=== PATIENT | female | born 1990 | race African-American/Black ===

== ENCOUNTER 2016-11-26 16:52 | Emergency (ER) | payer OTHER ==
[2016-11-26 17:02] VITALS: BP 116/72; PULSE 96; TEMP 98.4; BMI 29.7
[2016-11-26] MEDS ORDERED: ACETAMINOPHEN 500 MG TABLET (FP) PO ONE (17:33)
[2016-11-26] MEDS ORDERED: ACETAMINOPHEN 325 MG TABLET (FP) ONE (17:37)
--- NOTE | 2016-11-26 17:38 | PDOC ---
History of Present Illness - General Chief Complaint: Vaginal Sxs Stated Complaint: VAGINAL BLEEDING Time Seen by Provider: 11/26/16 17:11 History Source: Patient Exam Limitations: No Limitations - History of Present Illness Travel History: No Initial Comments: 11/26/16 17:36 26-year-old female 10 weeks presents to the ED with complaints of abdominal pain since yesterday now with vaginal bleeding since this morning. 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 Patient states history of ectopic 2 to the right side which she states had removal of her fallopian tube last year. Patient currently denies right versus left the pubic pain but is stating pain to the midsuprapubic region is radiating to her back. Patient denies dysuria, fever, chills, recent injury, or diarrhea. Timing/Duration: reports: constant Quality: reports: mild, cramping Abdominal Pain Onset Location: reports: suprapubic Pain Radiation: reports: back Activities at Onset: reports: none Aggravating Factors: improves with: None Alleviating Factors: improves with: None Past History - Past Medical History Allergies/Adverse Reactions: Allergies Allergy/AdvReac Type Severity Reaction Status Date / Time nitrofurantoin Allergy Verified 11/26/16 16:57 [From Macrobid] nitrofurantoin Allergy Verified 11/26/16 16:57 macrocrystalline [From Macrobid] SEAFOOD Allergy THROAT Uncoded 11/26/16 16:57 SWELLING, RASH Home Medications: Ambulatory Orders NK [No Known Home Medication] 11/26/16 Disorders: Yes (ecotopic ) - Reproductive History Is Patient Now?: Yes (#): 2 Para: 0 Cervical CA: No Dysfunctional Uterine Bleeding: No Ectopic : Yes (x2) Endometrial CA: No Polycystic Ovaries: No Therapeutic (s) & number: No Tubal Ligation: No Spontaneous : 1 Oophorectomy: No - Immunization History Immunization Up to Date: Yes - Psycho/Social/Smoking Cessation Hx Anxiety: Yes Suicidal Ideation: No Smoking Status: No Smoking History: Smoker current status UNK Have you smoked in the past 12 months: No Number of Cigarettes Smoked Daily: 0 Information on smoking cessation initiated: No Hx Alcohol Use: No Drug/Substance Use Hx: No Substance Use Type: Marijuana Patient Lives Alone: No Lives with/in: parents Review of Systems - Review of Systems Able to Perform ROS?: Yes Constitutional: No: Symptoms Reported HEENTM: No: Symptoms Reported Respiratory: No: Symptoms reported Cardiac (ROS): No: Symptoms Reported ABD/GI: Yes: Abdominal cramping : Yes: Discharge (vaginal bleeding) Musculoskeletal: Yes: Back Pain (low) Integumentary: No: Symptoms Reported Neurological: No: Symptoms reported *Physical Exam - Vital Signs Last Vital Signs Temp Pulse Resp BP Pulse Ox 98.4 F 96 H 20 116/72 99 11/26/16 16:57 11/26/16 16:57 11/26/16 16:57 11/26/16 16:57 11/26/16 16:57 - Physical Exam General Appearance: Yes: Nourished, Appropriately Dressed. No: Apparent Distress HEENT: negative: Pale Conjunctivae Neck: positive: Normal Thyroid, Supple Respiratory/Chest: positive: Lungs Clear, Normal Breath Sounds. negative: Respiratory Distress, Accessory Muscle Use Cardiovascular: positive: Regular Rhythm, Regular Rate. negative: Murmur Female Pelvic Exam: positive: cervical os closed, vaginal bleeding (bright red ) . negative: CMT, adnexal tenderness Gastrointestinal/Abdominal: positive: Soft, Tenderness (midsuprapubic). negative: Distended, Guarding, Rebound Integumentary: positive: Normal Color, Warm, Moist Neurologic: positive: Motor Strength 5/5 (ambulatory) ED Treatment Course - LABORATORY CBC & Chemistry Diagram: 11/26/16 17:23 11/26/16 17:23 - RADIOLOGY Radiology Studies Ordered: Category Date Time Status <14WKS US [US] Stat Ultrasound 11/26/16 17:23 Ordered Medical Decision Making - Medical Decision Making 11/26/16 17:43 Patient vaginal bleeding abdominal pain. Patient states currently 10 weeks but has not had an ultrasound yet for this . Patient also states history of ectopic 2 to the right side with salpingectomy after not responding to methotrexate. Patient ordered for labs, urine, Tylenol and ultrasound. 11/26/16 18:22 Laboratory Tests 11/26/16 11/26/16 17:23 17:23 WBC 10.3 H D Hgb 12.1 D Hct 36.6 Plt Count 351 Neutrophils % 80.3 Urine Glucose (UA) Negative Urine Ketones 1+ H Urine Nitrite Negative Ur Leukocyte Esterase Negative Pt given pitcher of water 11/26/16 18:49 Laboratory Tests 11/26/16 11/26/16 11/26/16 17:23 17:23 17:23 WBC 10.3 H D Hgb 12.1 D Hct 36.6 Neutrophils % 80.3 Sodium Potassium Chloride Carbon Dioxide Anion Gap BUN Creatinine Creat Clearance w eGFR Random Glucose Calcium Total Bilirubin AST ALT Beta HCG, Quant Urine Ketones 1+ H Urine Nitrite Negative Ur Leukocyte Esterase Negative Blood Type O NEGATIVE 11/26/16 17:23 WBC Hgb Hct Neutrophils % Sodium 141 Potassium 3.9 Chloride 105 Carbon Dioxide 30 Anion Gap 6 L BUN 5 L D Creatinine 0.7 D Creat Clearance w eGFR > 60 Random Glucose 83 Calcium 9.1 Total Bilirubin 0.4 AST 14 L ALT 17 Beta HCG, Quant 791.5 Urine Ketones Urine Nitrite Ur Leukocyte Esterase Blood Type She states last week she had went to [facility] Since she was spotting and her beta hCG was in the mid 100s. but no ultrasound was done *DC/Admit/Observation/Transfer Diagnosis at time of Disposition: Incomplete - Discharge Dispostion Disposition: HOME Condition at time of disposition: Stable - Patient Instructions Printed Discharge Instructions: DI for Miscarriage Additional Instructions: Discharge Instructions: -Please follow up with your RUBBER PRESS OPERATOR as soon as possible - your ultrasound shows possible retained products that may need to be surgically removed; bring the copy of your ultrasound with you to the appointment -Take tylenol every 4 hour for pain -Return to the ER with any worsening or concerning symptoms
[2016-11-26] MEDS ORDERED: ONDANSETRON *ODT* 4 MG TABLET SL ONE (17:40)
[2016-11-26] MEDS ORDERED: ONDANSETRON *ODT* 4 MG TABLET ONE (17:41)
[2016-11-26 17:52] LABS: EOSINOPHIL 0.2 % (0-4.5); MCH 28.9 pg (25.7-33.7); MCHC 33.2 g/dl (32.0-36.0); MEAN PLT VOLUME 8.1 fl (7.5-11.1); NEUTROPHILS 80.3 % (42.8-82.8); PLATELET COUNT 351 K/MM3 (134-434); RDW 15.1 % (11.6-15.6); WHITE BLOOD COUNT 10.3 K/mm3 (4.0-10.0)
[2016-11-26 17:54] LABS: URINE APPEARANCE CLEAR; URINE BILIRUBIN NEGATIVE (NEGATIVE); URINE BLOOD NEGATIVE (NEGATIVE); URINE COLOR LTYELLOW; URINE GLUCOSE (UA) NEGATIVE (NEGATIVE); URINE KETONE 1+ (NEGATIVE); URINE LEUK ESTERASE NEGATIVE (NEGATIVE); URINE NITRITE NEGATIVE (NEGATIVE); URINE PROTEIN NEGATIVE (NEGATIVE); URINE UROBILINOGEN NEGATIVE E.U./dl (0.2-1.0)
[2016-11-26 18:21] LABS: ANION GAP 6 (8-16); BILIRUBIN,TOTAL 0.4 mg/dL (0.2-1.0); CALCIUM 9.1 mg/dL (8.5-10.1); CO2 30 mmol/L (21-32); CREATININE 0.7 mg/dL (0.55-1.02); GLUCOSE,RANDOM 83 mg/dL (74-106); SGOT/AST 14 U/L (15-37); SGPT/ALT 17 U/L (12-78); TOT PROT 7.4 g/dl (6.4-8.2)
[2016-11-26 18:24] LABS: ALK PHOS 56 U/L (45-117)
[2016-11-26] MEDS ORDERED: RHO(D) IMMUNE GLOBULIN 1,500 UNIT DISP.SYRIN IM ONE (19:01)
--- NOTE | 2016-11-26 19:04 | PDOC ---
*Physical Exam - Vital Signs Last Vital Signs Temp Pulse Resp BP Pulse Ox 98.4 F 96 H 20 116/72 99 11/26/16 16:57 11/26/16 16:57 11/26/16 16:57 11/26/16 16:57 11/26/16 16:57 - Physical Exam Comments: 11/26/16 19:03 The patient was examined by [EDVIN Paulson] under my direct supervision. I personally evaluated the patient. I concur with the above findings and the plan of care. ED Treatment Course - LABORATORY CBC & Chemistry Diagram: 11/26/16 17:23 11/26/16 17:23 - ADDITIONAL ORDERS Additional order review: Laboratory Results 11/26/16 11/26/16 11/26/16 17:23 17:23 17:23 Sodium 141 Potassium 3.9 Chloride 105 Carbon Dioxide 30 Anion Gap 6 L BUN 5 L D Creatinine 0.7 D Creat Clearance w eGFR > 60 Random Glucose 83 Calcium 9.1 Total Bilirubin 0.4 AST 14 L ALT 17 Alkaline Phosphatase 56 Total Protein 7.4 Albumin 4.0 Beta HCG, Quant 791.5 Urine Color Ltyellow Urine Appearance Clear Urine pH 7.0 Ur Specific [place] 1.020 Urine Protein Negative Urine Glucose (UA) Negative Urine Ketones 1+ H Urine Blood Negative Urine Nitrite Negative Urine Bilirubin Negative Urine Urobilinogen Negative Ur Leukocyte Esterase Negative Blood Type O NEGATIVE Antibody Screen Negative 11/26/16 17:23 RBC 4.21 MCV 87.0 MCHC 33.2 RDW 15.1 D MPV 8.1 Neutrophils % 80.3 Lymphocytes % 11.9 Monocytes % 6.6 Eosinophils % 0.2 Basophils % 1.0 D - Medications Given in the ED: ED Medications Discontinued Medications Generic Name Dose Route Start Last Admin Trade Name Freq PRN Reason Stop Dose Admin Acetaminophen 975 mg 11/26/16 17:33 11/26/16 17:38 Tylenol - PO 11/26/16 17:34 975 mg ONCE ONE Administration Ondansetron HCl 4 mg 11/26/16 17:40 11/26/16 18:03 Zofran Odt - SL 11/26/16 17:41 4 mg ONCE ONE Administration *DC/Admit/Observation/Transfer Diagnosis at time of Disposition: Incomplete - Discharge Dispostion Disposition: HOME Condition at time of disposition: Stable - Patient Instructions Printed Discharge Instructions: DI for Miscarriage Additional Instructions: Discharge Instructions: -Please follow up with your DIRECTOR OF BUSINESS CONTINUITY as soon as possible - your ultrasound shows possible retained products that may need to be surgically removed; bring the copy of your ultrasound with you to the appointment -Take tylenol every 4 hour for pain -Return to the ER with any worsening or concerning symptoms
--- NOTE | 2016-11-26 19:45 | PDOC ---
ED Treatment Course - LABORATORY CBC & Chemistry Diagram: 11/26/16 17:23 11/26/16 17:23 - ADDITIONAL ORDERS Additional order review: Laboratory Results 11/26/16 11/26/16 11/26/16 17:23 17:23 17:23 Sodium 141 Potassium 3.9 Chloride 105 Carbon Dioxide 30 Anion Gap 6 L BUN 5 L D Creatinine 0.7 D Creat Clearance w eGFR > 60 Random Glucose 83 Calcium 9.1 Total Bilirubin 0.4 AST 14 L ALT 17 Alkaline Phosphatase 56 Total Protein 7.4 Albumin 4.0 Beta HCG, Quant 791.5 Urine Color Ltyellow Urine Appearance Clear Urine pH 7.0 Ur Specific [place] 1.020 Urine Protein Negative Urine Glucose (UA) Negative Urine Ketones 1+ H Urine Blood Negative Urine Nitrite Negative Urine Bilirubin Negative Urine Urobilinogen Negative Ur Leukocyte Esterase Negative Blood Type O NEGATIVE Antibody Screen Negative Unit Expiration Date [id number] 11/26/16 17:23 RBC 4.21 MCV 87.0 MCHC 33.2 RDW 15.1 D MPV 8.1 Neutrophils % 80.3 Lymphocytes % 11.9 Monocytes % 6.6 Eosinophils % 0.2 Basophils % 1.0 D - Medications Given in the ED: ED Medications Discontinued Medications Generic Name Dose Route Start Last Admin Trade Name Freq PRN Reason Stop Dose Admin Acetaminophen 975 mg 11/26/16 17:33 11/26/16 17:38 Tylenol - PO 11/26/16 17:34 975 mg ONCE ONE Administration Ondansetron HCl 4 mg 11/26/16 17:40 11/26/16 18:03 Zofran Odt - SL 11/26/16 17:41 4 mg ONCE ONE Administration Progress Note - Progress Note Progress Note: I have received report from EDVIN Paulson regarding this patient. Pt's initial chief complaint: abd pain since yesterday with vaginal bleeding. Approximately 10 weeks . History of 2 prior ectopic pregnancies Pt's work up completed prior to sign out: labs, Type and screen, UA Pt treatment given from prior staff: tylenol, zofran, rhogam Pt plan to be completed: Awaiting results of ultrasound Dispo: pending Medical Decision Making - Medical Decision Making A/P: 26 y/o afebrile female, approximately 10 weeks c/o abd pain since yesterday and vaginal bleeding since this morning. The patient has history of 2 ectopic pregnancies. Pt has had labs, UA, type and screen. She has had TYlenol, zofran and rhogam. Awaiting results of ultrasound. Transvaginal Ultrasound IMPRESSION: thickened endometrium with heterogeneous echotexture measuring 1.6cm in AP dimension with questionable minimal vascular flow seen on the color Doppler images suggestive of retained products of conception versus blood clots. Close follow up is recommended. No intrauterine gestational sac is identified. Explained the results to the patient. Suspect incomplete . Provided her with a copy of the results and suggested she f/u with her PLUM PACKER as soon as possible. Pt instructed to return to the ER with any worsening or concerning symptoms. The patient verbalizes understanding of all instructions, has no further questions and is awaiting discharge. *DC/Admit/Observation/Transfer Diagnosis at time of Disposition: Incomplete - Discharge Dispostion Disposition: HOME Condition at time of disposition: Stable - Patient Instructions Printed Discharge Instructions: DI for Miscarriage Additional Instructions: Discharge Instructions: -Please follow up with your PLUM PACKER as soon as possible - your ultrasound shows possible retained products that may need to be surgically removed; bring the copy of your ultrasound with you to the appointment -Take tylenol every 4 hour for pain -Return to the ER with any worsening or concerning symptoms
[2016-11-26] MEDS ORDERED: IBUPROFEN 400 MG TABLET (FP) PO ONE ×2 (21:11→21:13)
== END 2016-11-26 21:13 | disposition home or self-care (01) ==
LOC: JER 16:52
PROC: 3E0234Z Introduction of Serum, Toxoid and Vaccine into Muscle, Percutaneous Approach (ICD-10-PCS; principal; 2016-11-26)
DX: O03.4 Incomplete spontaneous abortion without complication (principal); Z3A.10 10 weeks gestation of pregnancy
CPT/HCPCS: 36415; 76801-TC; 80053; 81003; 84702; 85025; 86850; 86900; 86901; 86999; 87086; 99282-25; J1561

== ENCOUNTER 2016-12-09 08:15 | Emergency (ER) | payer OTHER ==
[2016-12-09 08:22] VITALS: TEMP 97.9; BMI 29.7
[2016-12-09] MEDS ORDERED: SODIUM CHLORIDE 1,000 ML IV ONE (09:01)
[2016-12-09 09:45] LABS: WHITE BLOOD COUNT 6.4 K/mm3 (4.0-10.0)
[2016-12-09 09:47] LABS: URINE APPEARANCE CLEAR; URINE BILIRUBIN NEGATIVE (NEGATIVE); URINE BLOOD NEGATIVE (NEGATIVE); URINE COLOR LTYELLOW; URINE GLUCOSE (UA) NEGATIVE (NEGATIVE); URINE KETONE NEGATIVE (NEGATIVE); URINE NITRITE NEGATIVE (NEGATIVE); URINE PROTEIN NEGATIVE (NEGATIVE); URINE UROBILINOGEN NEGATIVE E.U./dl (0.2-1.0)
[2016-12-09 09:50] LABS: EOSINOPHIL 2.6 % (0-4.5); MCH 28.8 pg (25.7-33.7); MCHC 33.1 g/dl (32.0-36.0); MEAN PLT VOLUME 7.6 fl (7.5-11.1); NEUTROPHILS 57.6 % (42.8-82.8); PLATELET COUNT 417 K/MM3 (134-434); RDW 15.1 % (11.6-15.6)
[2016-12-09 09:51] LABS: URINE LEUK ESTERASE 1+ (NEGATIVE)
--- NOTE | 2016-12-09 09:51 | PDOC ---
History of Present Illness - General History Source: Patient Exam Limitations: No Limitations - History of Present Illness Initial Comments: 12/09/16 09:51 The patient is a 26-year-old woman, [id number] (ectopic), with no past medical history who presents to the emergency department via walk in for further evaluation of abdominal pain. Patient was in this ED on 11/26/2016, for abdominal pain with associated vaginal bleeding, which she was noted to have a miscarriage. Patient was advised to return to the ED in 48 hours to follow up on her beta HCG. She admits she never followed up, although she continued to bleed post discharge. She states that ever since hospital discharge, she has been experiencing suprapubic abdominal cramps with associated frontal headaches, lightheadedness and vaginal discharge (yellow in appearance). She stopped bleeding, approximately 2-3 days ago, but continued to experiencing abdominal cramping. She presents today, as her symptoms have remained persistent, despite compliance with Tylenol. She denies fever, chills, diaphoresis, generalized weakness, visual changes, photophobia, neck pain, neck stiffness. She denies chest pain, shortness of breath, cough She denies nausea, vomiting, diarrhea, dysuria, hematuria, urinary frequency and urgency, flank pain, vaginal bleeding Allergies: Nitrofuratoin. Past Surgical History: Ectopic Social History: Retired. She denies tobacco, ETOH and recreational drug use. Primary Care Physician: Follows at [address] [place] [address]. <Hannah Gould - Last Filed: 12/09/16 10:33> <Stevie Velazquez - Last Filed: 12/09/16 11:23> - General Chief Complaint: Pain, Acute Stated Complaint: DIZZINESS Time Seen by Provider: 12/09/16 08:49 Past History <Hannah Gould - Last Filed: 12/09/16 10:33> - Past Medical History Disorders: Yes (ecotopic ) - Reproductive History Is Patient Now?: No (#): 4 Para: 0 Cervical CA: No Dysfunctional Uterine Bleeding: No Ectopic : Yes (x2) Endometrial CA: No Polycystic Ovaries: No Therapeutic (s) & number: No Tubal Ligation: No Spontaneous : 2 Oophorectomy: No - Immunization History Immunization Up to Date: Yes - Psycho/Social/Smoking Cessation Hx Anxiety: Yes Suicidal Ideation: No Smoking Status: No Smoking History: Smoker current status UNK Have you smoked in the past 12 months: No Number of Cigarettes Smoked Daily: 0 Information on smoking cessation initiated: No Hx Alcohol Use: No Drug/Substance Use Hx: No Substance Use Type: Marijuana <Stevie Velazquez - Last Filed: 12/09/16 11:23> - Past Medical History Allergies/Adverse Reactions: Allergies Allergy/AdvReac Type Severity Reaction Status Date / Time nitrofurantoin Allergy Verified 12/09/16 08:17 [From Macrobid] nitrofurantoin Allergy Verified 12/09/16 08:17 macrocrystalline [From Macrobid] SEAFOOD Allergy THROAT Uncoded 12/09/16 08:17 SWELLING, RASH Home Medications: Ambulatory Orders Alprazolam [Xanax] 1 mg PO DAILY 12/09/16 Quetiapine Fumarate [Seroquel] 100 tab PO HS 12/09/16 Review of Systems - Review of Systems Constitutional: No: Chills, Fever HEENTM: No: Recent change in vision Respiratory: No: Cough, Shortness of Breath Cardiac (ROS): Yes: Lightheadedness. No: Chest Pain ABD/GI: Yes: Nausea. No: Diarrhea, Vomiting : Yes: See HPI Neurological: Yes: Headache All Other Systems: Reviewed and Negative <Stevie Velazquez - Last Filed: 12/09/16 11:23> *Physical Exam - Vital Signs Last Vital Signs Temp Pulse Resp BP Pulse Ox 97.9 F 80 16 123/88 100 12/09/16 08:18 12/09/16 08:18 12/09/16 08:18 12/09/16 08:18 12/09/16 08:18 - Physical Exam Comments: 12/09/16 09:51 GENERAL: The patient is awake, alert, and fully oriented, in no acute distress. HEAD: Normal with no signs of trauma. EYES: Pupils equal, round and reactive to light, extraocular movements intact, sclera anicteric, conjunctiva clear with no pallor. ENT: Ears normal, nares patent, oropharynx clear without exudates. Moist mucous membranes. NECK: Normal range of motion, supple without lymphadenopathy, JVD, or masses. LUNGS: Breath sounds equal, clear to auscultation bilaterally. No wheeze/ crackles. HEART: Regular rate and rhythm, normal S1 and S2 without murmur or rub. ABDOMEN: Soft. There is some suprapubic discomfort to palpation without guarding or rebound. Nondistended. BS wnl. No palpable masses. No hepatosplenomegaly. EXTREMITIES: Normal range of motion, no edema. No clubbing or cyanosis. No cords, erythema, or tenderness. NEUROLOGICAL: Cranial nerves II through XII grossly intact. Normal speech. PSYCH: Normal mood, normal affect. SKIN: Warm, Dry, normal turgor, no rashes or lesions noted. <Hannah Gould - Last Filed: 12/09/16 10:33> - Vital Signs Last Vital Signs Temp Pulse Resp BP Pulse Ox 97.9 F 80 16 123/88 100 12/09/16 08:18 12/09/16 08:18 12/09/16 08:18 12/09/16 08:18 12/09/16 08:18 <Stevie Velazquez - Last Filed: 12/09/16 11:23> Heart Score/ECG Review #1 ECG reviewed & interpreted by me at: 10:55 General ECG Interpretation: Sinus Rhythm, Normal Rate (70), Normal Intervals ( qtc 442), No acute ischemic changes <Stevie Velazquez - Last Filed: 12/09/16 11:23> ED Treatment Course - LABORATORY CBC & Chemistry Diagram: 12/09/16 09:25 12/09/16 09:25 - ADDITIONAL ORDERS Additional order review: 12/09/16 09:25 RBC 4.33 MCV 87.0 MCHC 33.1 RDW 15.1 MPV 7.6 Neutrophils % 57.6 D Lymphocytes % 31.8 D Monocytes % 7.0 Eosinophils % 2.6 D Basophils % 1.0 - RADIOLOGY Radiograph Interpretation: 12/09/16 10:33 EXAM: US/TRANSVAGINAL ULTRASOUND US IMPRESSION: Compared to prior examination dated 06/08/2015. The uterus measures 7.9 x 3.9 cm. No intrauterine gestational sac is seen. Endometrial stripe measures 7.5 mm in thickness and it appears hypoechoic. No abnormal vascularity is identified. Right ovary measures 3 x 2 cm with a few small peripheral follicles and normal vascular flow. Left ovary measures 3.3 x 2 cm with a simple cyst/dominant follicle measuring 1.4 cm and normal vascular flow. There is no free fluid in the cul-de-sac <GouldHannah - Last Filed: 12/09/16 10:33> - LABORATORY CBC & Chemistry Diagram: 12/09/16 09:25 12/09/16 09:25 - RADIOLOGY Radiology Studies Ordered: Category Date Time Status TRANSVAGINAL ULTRASOUND US [US] Stat Ultrasound 12/09/16 09:13 Ordered <Stevie Velazquez - Last Filed: 12/09/16 11:23> Medical Decision Making - Medical Decision Making 12/09/16 09:44 A portion of this note was documented by scribe services under my direction. I have reviewed the details of the note, within reason, and agree with the documentation with the following case summary and management plan written by me. 26-year-old female with status post first trimester miscarriage diagnosed on 11/26, had persistent bleeding after her ED visit now presents with episode of pelvic cramping with subsequent lightheadedness and mild, gradual onset headache. Her cramping and headache resolved after Tylenol, she activated EMS this morning for further evaluation. Patient is now essentially without complaints, no persistent vaginal bleeding, no fevers or chills. Vital signs normal. Well-appearing, hemodynamically stable, seated in stretcher smiling Abdomen is benign except for mild suprapubic discomfort Neurologically intact 26-year-old female with recently diagnosed spontaneous miscarriage presents with pelvic cramping, no bleeding. Rule out retained products, not clinically consistent with infection or PID. Mild, gradual onset headache without red flags on history or physical exam, resolved. Check hemoglobin, beta-hCG, transvaginal ultrasound No indication for emergent imaging as part of headache workup Will give IV fluids, reassess and dispo accordingly 12/09/16 11:19 Labs are within normal limits, hemoglobin 12.1 which is patient's baseline, hCG 22, downtrending from 11/26 when it was 250. Ultrasound shows no evidence of retained products of conception, normal endometrial stripe. Patient feels well, seated in stretcher talking on her cell phone smiling, abdominal exam unchanged and without peritoneal findings. Mom called the ER regarding the patient, she expressed concern about her daughter and the medications that she is taking. When I addressed this with the patient, she states that her psychiatrist prescribed her Xanax daily, and that her mother gets upset when she takes because she feels like she will get addicted. Discussed with patient, warned about the risks of daily Xanax, plan is to speak to her therapist about a better long-term solution. While she is upset that she had a fight with her girlfriend, she is not actively depressed and has no suicidal ideations or homicidal ideations, she does not want to see a psychiatrist and has good access to her therapist. In the absence of any acute psychiatric issues, no indication for emergent evaluation, patient can go home and/or to a friend's house, and feels safe at home. She understands return criteria. <Stevie Velazquez - Last Filed: 12/09/16 11:23> *DC/Admit/Observation/Transfer <Hannah Gould - Last Filed: 12/09/16 10:33> <Stevie Velazquez - Last Filed: 12/09/16 11:23> Diagnosis at time of Disposition: Miscarriage, Lightheaded - Discharge Dispostion Disposition: HOME Condition at time of disposition: Stable - Referrals Referrals: Ayleen Echevarria NP [Nurse Practitioner] - - Patient Instructions Printed Discharge Instructions: DI for Pelvic Pain Additional Instructions: Activity as tolerated. Stay hydrated. Tylenol 1000 mg every 8 hours and/or ibuprofen 600 mg every 8 hours as needed for pain. Blood tests and an ultrasound performed today showed no acute abnormalities. Continue your medications as previously prescribed by your physician. As discussed, if you find herself needing daily Xanax, there are better and less addicting medications that you can take. Speak to your therapist about this. You should follow up with your primary doctor as soon as possible regarding today's emergency department visit. Return to the emergency department for any new or concerning symptoms, particularly intolerable pain, depression or thoughts of hurting herself or others, fevers or chills, severe bleeding.
[2016-12-09 09:52] LABS: URINE BACTERIA RARE /hpf (NONE SEEN); URINE MUCUS RARE; URINE RBC <1 /hpf (0-3); URINE WBC 5 /hpf (3-5)
[2016-12-09 10:02] LABS: ALBUMIN 3.7 g/dl (3.4-5.0); ANION GAP 6 (8-16); BILIRUBIN,TOTAL 0.2 mg/dL (0.2-1.0); CALCIUM 8.8 mg/dL (8.5-10.1); CO2 31 mmol/L (21-32); CREATININE 0.8 mg/dL (0.55-1.02); GLUCOSE,RANDOM 92 mg/dL (74-106); SGOT/AST 13 U/L (15-37); SGPT/ALT 15 U/L (12-78)
[2016-12-09 10:05] LABS: ALK PHOS 51 U/L (45-117)
[2016-12-09 11:43] VITALS: BP 117/78; PULSE 70
--- NOTE | 2016-12-09 13:46 | EKG ---
Test Reason : Blood Pressure : / mmHG Vent. Rate : 070 BPM Atrial Rate : 070 BPM P-R Int : 172 ms QRS Dur : 078 ms QT Int : 410 ms P-R-T Axes : 018 038 020 degrees QTc Int : 442 ms NORMAL SINUS RHYTHM NORMAL ECG NO PREVIOUS ECGS AVAILABLE Confirmed by JAJA GALLEGO, SHAR ([id number]) on 12/09/2016 1:46:36 PM Referred By: Confirmed By:SHAR WILKINSON MD
== END 2016-12-09 11:44 | disposition home or self-care (01) ==
LOC: JER 08:15
PROC: 3E0337Z Introduction of Electrolytic and Water Balance Substance into Peripheral Vein, Percutaneous Approach (ICD-10-PCS; principal; 2016-12-09)
DX: O03.9 Complete or unspecified spontaneous abortion without complication (principal); R42 Dizziness and giddiness
CPT/HCPCS: 36415; 76830-TC; 80053; 81003; 81015; 84702; 85025; 86850; 86870; 86900; 86901; 86902; 93005; 93010; 96360; 99284-25

== ENCOUNTER 2017-05-14 10:03 | Emergency (ER) | payer OTHER ==
[2017-05-14 10:11] VITALS: BMI 28.3
--- NOTE | 2017-05-14 10:46 | PDOC ---
Attending Attestation - Resident Resident Name: KassyDb - ED Attending Attestation I have performed the following: I have examined & evaluated the patient, The case was reviewed & discussed with the resident, I agree w/resident's findings & plan, Exceptions are as noted - HPI HPI: 05/14/17 11:42 27y F hx of PCOS presents with complaint of nausea, and suprapubic pain for 1 month, pt states that when she has her period she typically feels nauseas and vomits. Since her last she has had zachariah long periods lsating several weeks. She states her sypmtoms are typical for her but she notes she has been feeling intermittent lightheaded for week. GENERAL: The patient is awake, alert, and fully oriented, Nontoxic - in no acute distress. HEAD: Normocephalic, atraumatic. EYES: extraocular movements intact, sclera anicteric, conjunctiva clear. ENT: Normal voice, Moist mucous membranes. NECK: Normal range of motion, supple LUNGS: Breath sounds equal, clear to auscultation bilaterally. No wheezes, no rhonchi, no rales. HEART: Regular rate and rhythm, normal S1 and S2 without murmur, rub or gallop. ABDOMEN: Soft, nontender, normoactive bowel sounds. No guarding, no rebound. . No CVA tenderness EXTREMITIES: Normal range of motion, no edema. No clubbing or cyanosis. No cords, erythema, or tenderness. NEUROLOGICAL: No facial assymetry, Normal speech, PSYCH: Normal mood, normal affect. SKIN: Warm, Dry, normal turgor, will obtain basic blood work zofran/fulids for sypmtomatic releif no abd tenderness to suggest localized peritonitis - Physicial Exam PE: 05/14/17 11:45 se eabove - Medical Decision Making 05/14/17 11:45 see above
[2017-05-14 11:26] LABS: URINE APPEARANCE SLCLOUDY; URINE BILIRUBIN NEGATIVE (NEGATIVE); URINE BLOOD NEGATIVE (NEGATIVE); URINE COLOR YELLOW; URINE GLUCOSE (UA) NEGATIVE (NEGATIVE); URINE KETONE NEGATIVE (NEGATIVE); URINE LEUK ESTERASE TRACE (NEGATIVE); URINE NITRITE NEGATIVE (NEGATIVE); URINE UROBILINOGEN NEGATIVE mg/dL (0.2-1.0)
[2017-05-14 11:35] LABS: URINE PROTEIN 1+ (NEGATIVE)
[2017-05-14 11:48] LABS: URINE MUCUS MANY; URINE RBC 7 /hpf (0-3); URINE WBC 6 /hpf (3-5); YEAST MODERATE
[2017-05-14 12:16] LABS: EOSINOPHIL 0.6 % (0-4.5); MCH 27.7 pg (25.7-33.7); MCHC 32.9 g/dl (32.0-36.0); MEAN CELL VOLUME 84.2 fl (80-96); NEUTROPHILS 63.5 % (42.8-82.8); PLATELET COUNT 416 K/MM3 (134-434); RDW 16.3 % (11.6-15.6); WHITE BLOOD COUNT 6.6 K/mm3 (4.0-10.0)
[2017-05-14 12:35] LABS: ALBUMIN 3.8 g/dl (3.4-5.0); ANION GAP 5 (8-16); CALCIUM 8.7 mg/dL (8.5-10.1); CO2 28 mmol/L (21-32); GLUCOSE,RANDOM 82 mg/dL (74-106)
[2017-05-14 12:37] LABS: CREATININE 0.9 mg/dL (0.55-1.02); SGOT/AST 17 U/L (15-37); SGPT/ALT 13 U/L (12-78)
--- NOTE | 2017-05-14 12:38 | PDOC ---
History of Present Illness - General Chief Complaint: Nausea/Vomiting Stated Complaint: VOMITING Time Seen by Provider: 05/14/17 10:09 - History of Present Illness Initial Comments: 05/14/17 12:35 27F with pmh of PCOS complaining of chronically vomiting during menses for the past few months. "cant keep anything down". Past History - Past Medical History Allergies/Adverse Reactions: Allergies Allergy/AdvReac Type Severity Reaction Status Date / Time nitrofurantoin Allergy Verified 12/09/16 08:17 [From Macrobid] nitrofurantoin Allergy Verified 12/09/16 08:17 macrocrystalline [From Macrobid] SEAFOOD Allergy THROAT Uncoded 12/09/16 08:17 SWELLING, RASH Home Medications: Ambulatory Orders Alprazolam [Xanax] 1 mg PO DAILY 12/09/16 Quetiapine Fumarate [Seroquel] 100 tab PO HS 12/09/16 Disorders: Yes (ecotopic ) - Reproductive History (#): 4 Para: 0 Cervical CA: No Dysfunctional Uterine Bleeding: No Ectopic : Yes (x2) Endometrial CA: No Polycystic Ovaries: No Therapeutic (s) & number: No Tubal Ligation: No Spontaneous : 2 Oophorectomy: No - Immunization History Immunization Up to Date: Yes - Psycho/Social/Smoking Cessation Hx Anxiety: No Suicidal Ideation: No Smoking Status: No Smoking History: Never smoked Have you smoked in the past 12 months: No Number of Cigarettes Smoked Daily: 0 Hx Alcohol Use: No Drug/Substance Use Hx: No Substance Use Type: None Review of Systems - Review of Systems Constitutional: No: Symptoms Reported HEENTM: No: Symptoms Reported Respiratory: No: Symptoms reported Cardiac (ROS): No: Symptoms Reported *Physical Exam - Vital Signs Last Vital Signs Temp Pulse Resp BP Pulse Ox 98.3 F 96 H 20 125/76 98 05/14/17 10:09 05/14/17 10:09 05/14/17 10:09 05/14/17 10:09 05/14/17 10:09 ED Treatment Course - LABORATORY CBC & Chemistry Diagram: 05/14/17 12:09 05/14/17 12:09 - ADDITIONAL ORDERS Additional order review: Laboratory Results 05/14/17 11:05 Urine Color Yellow Urine Appearance Slcloudy Urine pH 7.0 Urine Protein 1+ H Urine Glucose (UA) Negative Urine Ketones Negative Urine Blood Negative Urine Nitrite Negative Urine Bilirubin Negative Urine Urobilinogen Negative Ur Leukocyte Esterase Trace Urine RBC 7 Urine WBC 6 Ur Epithelial Cells Rare Urine Mucus Many Urine Yeast Moderate Urine HCG, Qual Negative 05/14/17 12:09 RBC 4.17 MCV 84.2 MCHC 32.9 RDW 16.3 H MPV 8.0 Neutrophils % 63.5 Lymphocytes % 29.7 Monocytes % 5.2 Eosinophils % 0.6 Basophils % 1.0
[2017-05-14 12:39] LABS: ALK PHOS 53 U/L (45-117); BILIRUBIN,TOTAL 0.2 mg/dL (0.2-1.0); TOT PROT 7.8 g/dl (6.4-8.2)
[2017-05-14 12:55] VITALS: BP 122/79; PULSE 75; TEMP 98.1
== END 2017-05-14 13:28 | disposition home or self-care (01) ==
LOC: JER 10:03
DX: R11.10 Vomiting, unspecified (principal); E28.2 Polycystic ovarian syndrome
CPT/HCPCS: 36415; 80053; 81003; 81015; 84703; 85025; 99282-25

== ENCOUNTER 2017-10-26 10:34 | Emergency (ER) | payer BC, OTHER ==
[2017-10-26 10:40] VITALS: TEMP 98.7; BMI 27.1
--- NOTE | 2017-10-26 13:41 | PDOC ---
History of Present Illness - General Chief Complaint: Pain Stated Complaint: pain Time Seen by Provider: 10/26/17 13:35 History Source: Patient Exam Limitations: No Limitations - History of Present Illness Initial Comments: CHIEF COMPLAINT: 27 y/o afebrile female with PMH bipolar disorder and OCD c/o left knee pain and left pelvic pain today. HISTORY OF PRESENT ILLNESS: The patient states the pelvic pain comes and goes. She states she woke up with the knee pain but denies fall/trauma to the knee. She denies f/c, n/v/d, BUCKNER, neck pain, changes in vision/hearing, CP, SOB, back pain, hematuria, dysuria. She has not taken any pain medication at home. Vital signs on arrival are within normal limits. REVIEW OF SYSTEMS: GENERAL/CONSTITUTIONAL: No fever/chills. No weakness. No weight change. HEAD, EYES, EARS, NOSE AND THROAT: No change in vision. No ear pain or discharge. No sore throat. CARDIOVASCULAR: No chest pain or shortness of breath. RESPIRATORY: No cough, wheezing, or hemoptysis. GASTROINTESTINAL: +left pelvic pain. No nausea, vomiting, diarrhea. GENITOURINARY: No dysuria, frequency, or change in urination. MUSCULOSKELETAL: +left knee pain. No neck or back pain. SKIN: No rash or easy bruising. NEUROLOGIC: No headache, vertigo, loss of consciousness, or loss of sensation. PHYSICAL EXAM: GENERAL: The patient is awake, alert, and fully oriented, in no acute distress. She is very well appearing, ambulatory, in NAD or obvious discomfort. HEAD: Normal with no signs of trauma. ENT: Pupils equal, round and reactive to light, extraocular movements intact, sclera anicteric, conjunctiva clear. Neck supple. LUNGS: Clear to auscultation bilaterally. Normal excursion. No respiratory distress or use of accessory muscles. CV: RRR, S1/S2, no MRG. Cap refill < 2 sec. ABDOMEN: Very minimal TTP of left pelvic region. +suprapubic tenderness to palpation. Soft, non-distended, no hepatomegaly or splenomegaly, no masses. EXTREMITIES: Normal range of motion, no edema. Pain reproduced with palpation of left superior patella. No left knee joint tenderness. Negative lachmann's test. NEUROLOGICAL: Normal speech, normal gait. CN II-XII grossly intact. PSYCH: Normal mood, normal affect. SKIN: Warm, dry, normal turgor, no rashes or lesions noted. Past History - Past Medical History Allergies/Adverse Reactions: Allergies Allergy/AdvReac Type Severity Reaction Status Date / Time nitrofurantoin Allergy Verified 10/26/17 10:36 [From Macrobid] nitrofurantoin Allergy Verified 10/26/17 10:36 macrocrystalline [From Macrobid] SEAFOOD Allergy THROAT Uncoded 10/26/17 10:36 SWELLING, RASH Home Medications: Ambulatory Orders Alprazolam [Xanax] 1 mg PO DAILY 12/09/16 Quetiapine Fumarate [Seroquel] 100 tab PO HS 12/09/16 Ibuprofen [Motrin -] 600 mg PO Q6H #18 tablet 10/26/17 COPD: No Disorders: Yes (ecotopic ) Psychiatric Problems: Yes (bipolar d/o , ocd) - Surgical History Abdominal Surgery: Yes (rt F.TUBE REMOVED) - Reproductive History (#): 4 Para: 0 Cervical CA: No Dysfunctional Uterine Bleeding: No Ectopic : Yes (x2) Endometrial CA: No Polycystic Ovaries: No Therapeutic (s) & number: No Tubal Ligation: No Spontaneous : 2 Oophorectomy: No - Immunization History Immunization Up to Date: Yes - Suicide/Smoking/Psychosocial Hx Smoking Status: No Smoking History: Never smoked Have you smoked in the past 12 months: No Number of Cigarettes Smoked Daily: 0 Information on smoking cessation initiated: No Hx Alcohol Use: No Drug/Substance Use Hx: No Substance Use Type: None *Physical Exam - Vital Signs Last Vital Signs Temp Pulse Resp BP Pulse Ox 98.7 F 98 H 18 109/82 100 10/26/17 10:37 10/26/17 10:37 10/26/17 10:37 10/26/17 10:37 10/26/17 10:37 ED Treatment Course - LABORATORY CBC & Chemistry Diagram: 10/26/17 14:05 10/26/17 14:05 Medical Decision Making - Medical Decision Making A/P: 27 y/o female with left pelvic pain, suprapubic pain and left knee pain that all started today. Plan is as follows: 1. hcg/UA 2. Labs 3. IM Toradol The patient states she feels better after Toradol. Vital signs improved. Will give NUBIA bandage for knee and will provide with RICE instructions. Also suggested iron supplement. She informs me that she had her period for 3 months straight and just stopped bleeding last week, which would explain the anemia. Suggested she take 600mg of Ibuprofen with food every 6 hours for pain and f/u with Dr. Palmer within 2 weeks as the patient requested a referral to a new PCP. Instructed her to return to the ER with any worsening or concerning symptoms. The patient verbalizes understanding of all instructions, has no further questions and is awaiting discharge. *DC/Admit/Observation/Transfer Diagnosis at time of Disposition: Pelvic pain Anemia Qualifiers: Anemia type: unspecified type Qualified Code(s): D64.9 - Anemia, unspecified - Discharge Dispostion Disposition: HOME Condition at time of disposition: Improved - Prescriptions Prescriptions: Ibuprofen [Motrin -] 600 mg PO Q6H #18 tablet - Referrals Referrals: Zack Palmer MD [Staff Physician] - 1 week - Patient Instructions Printed Discharge Instructions: DI for Iron Deficiency Anemia-Adult, How To Perform RICE (Rest, Ice, Compress, Elevate), DI for Knee Pain, DI for Pelvic Pain Additional Instructions: Discharge Instructions: -Follow RICE instructions for knee pain -Take 600mg of Ibuprofen with food every 6 hours for pain -Drink at least 8 glasses of water daily -Take an iron supplement daily -Follow up with Dr. Palmer within 2 weeks -Return to the ER immediately with any worsening or concerning symptoms - Post Discharge Activity Forms/Work/School Notes: Back to Work
[2017-10-26 14:13] LABS: HCG,QUALITATIVE URINE NEGATIVE
[2017-10-26 14:14] LABS: EOS % 1.6 % (0-4.5); HEMATOCRIT 31.1 % (32.4-45.2); HEMOGLOBIN 9.8 GM/dL (10.7-15.3); LYMPH % 23.6 % (8-40); MCH 24.5 pg (25.7-33.7); MCHC 31.5 g/dl (32.0-36.0); MEAN CELL VOLUME 77.7 fl (80-96); MONO % 7.6 % (3.8-10.2); NEUT % 66.2 % (42.8-82.8); PLATELET COUNT 546 K/MM3 (134-434); RDW 18.1 % (11.6-15.6); WHITE BLOOD COUNT 5.7 K/mm3 (4.0-10.0)
[2017-10-26 14:18] LABS: URINE APPEARANCE SLCLOUDY; URINE BILIRUBIN NEGATIVE (NEGATIVE); URINE BLOOD NEGATIVE (NEGATIVE); URINE COLOR YELLOW; URINE GLUCOSE (UA) NEGATIVE (NEGATIVE); URINE KETONE TRACE (NEGATIVE); URINE NITRITE NEGATIVE (NEGATIVE); URINE PROTEIN NEGATIVE (NEGATIVE); URINE UROBILINOGEN 4.0 E.U/dl mg/dL (0.2-1.0)
[2017-10-26 14:22] LABS: URINE LEUK ESTERASE 1+ (NEGATIVE)
[2017-10-26] MEDS ORDERED: SODIUM CHLORIDE 1,000 ML IV STA (14:30)
[2017-10-26] MEDS ORDERED: KETOROLAC TROMETHAMINE 30 MG/1 ML VIAL IVPUSH ONE (14:30)
[2017-10-26] MEDS ORDERED: KETOROLAC TROMETHAMINE 30 MG/1 ML VIAL ONE (14:39)
[2017-10-26 14:40] LABS: ALBUMIN 3.5 g/dl (3.4-5.0); ALK PHOS 68 U/L (45-117); ANION GAP 8 (8-16); BILIRUBIN,TOTAL 0.2 mg/dL (0.2-1.0); BLOOD UREA NITROGEN 7 mg/dL (7-18); CALCIUM 8.9 mg/dL (8.5-10.1); CHLORIDE 105 mmol/L (98-107); CO2 28 mmol/L (21-32); CREATININE 0.7 mg/dL (0.55-1.02); GLUCOSE,RANDOM 76 mg/dL (74-106); POTASSIUM 4.5 mmol/L (3.5-5.1); SGOT/AST 14 U/L (15-37); SGPT/ALT 13 U/L (12-78); SODIUM 141 mmol/L (136-145); TOT PROT 7.9 g/dl (6.4-8.2)
[2017-10-26 15:44] LABS: EPI CELLS RARE /HPF (FEW)
[2017-10-26 16:37] VITALS: BP 113/68; PULSE 80
== END 2017-10-26 16:49 | disposition home or self-care (01) ==
LOC: JER 10:34
PROC: 3E0337Z Introduction of Electrolytic and Water Balance Substance into Peripheral Vein, Percutaneous Approach (ICD-10-PCS; principal; 2017-10-26)
PROC: 3E0333Z Introduction of Anti-inflammatory into Peripheral Vein, Percutaneous Approach (ICD-10-PCS; 2017-10-26)
DX: R10.2 Pelvic and perineal pain (principal); M25.562 Pain in left knee; D64.9 Anemia, unspecified
CPT/HCPCS: 36415; 80053; 81003; 81015; 84703; 85025; 96361; 96374; 99281-25

== ENCOUNTER 2017-11-18 08:08 | Emergency (ER) | payer BC, OTHER ==
[2017-11-18 08:16] VITALS: BP 109/58; PULSE 73; TEMP 98.4; BMI 27.3
[2017-11-18] MEDS ORDERED: ONDANSETRON *ODT* 4 MG TABLET SL ONE (08:31)
[2017-11-18] MEDS ORDERED: ONDANSETRON *ODT* 4 MG TABLET ONE (08:36)
--- NOTE | 2017-11-18 08:42 | PDOC ---
History of Present Illness - General Chief Complaint: Nausea/Vomiting Stated Complaint: VOMITING Time Seen by Provider: 11/18/17 08:30 History Source: Patient Exam Limitations: No Limitations - History of Present Illness Initial Comments: 11/18/17 08:38 27 yr female with c/o nausea and vomiting since 5am . pt denies diarrhea no abd pain , last meal at 9pm was plantains and sausage. Pt denies sick contacts. history of depression and anxiety, right ectopic with fallopian tube removal. Timing/Duration: 4-6 hours Severity: mild Associated Symptoms: reports: nausea/vomiting Past History - Past Medical History Allergies/Adverse Reactions: Allergies Allergy/AdvReac Type Severity Reaction Status Date / Time nitrofurantoin Allergy Verified 11/18/17 08:12 [From Macrobid] nitrofurantoin Allergy Verified 11/18/17 08:12 macrocrystalline [From Macrobid] SEAFOOD Allergy THROAT Uncoded 11/18/17 08:12 SWELLING, RASH Home Medications: Ambulatory Orders NK [No Known Home Medication] 11/18/17 COPD: No DVT: No Disorders: Yes (ecotopic PREGS ( RIGHT FALLOPIAN TUBE )) Psychiatric Problems: Yes (bipolar d/o , ocd) - Surgical History Abdominal Surgery: Yes (rt F.TUBE REMOVED) - Reproductive History (#): 4 Para: 0 Cervical CA: No Dysfunctional Uterine Bleeding: No Ectopic : Yes (x2) Endometrial CA: No Polycystic Ovaries: No Therapeutic (s) & number: No Tubal Ligation: No Spontaneous : 2 Oophorectomy: No - Immunization History Immunization Up to Date: Yes - Suicide/Smoking/Psychosocial Hx Smoking Status: No Smoking History: Never smoked Have you smoked in the past 12 months: No Number of Cigarettes Smoked Daily: 0 Information on smoking cessation initiated: No Hx Alcohol Use: No Drug/Substance Use Hx: No Substance Use Type: None Review of Systems - Review of Systems Able to Perform ROS?: Yes Is the patient limited Croatian proficient: No Constitutional: No: Symptoms Reported HEENTM: No: Symptoms Reported Respiratory: No: Symptoms reported Cardiac (ROS): No: Symptoms Reported ABD/GI: Yes: Symptoms Reported *Physical Exam - Vital Signs Last Vital Signs Temp Pulse Resp BP Pulse Ox 98.4 F 73 16 109/58 100 11/18/17 08:12 11/18/17 08:12 11/18/17 08:12 11/18/17 08:12 11/18/17 08:12 - Physical Exam General Appearance: Yes: Nourished, Appropriately Dressed HEENT: positive: EOMI, MEGAN, TMs Normal Neck: positive: Supple. negative: Tender Respiratory/Chest: positive: Lungs Clear, Normal Breath Sounds Cardiovascular: positive: Regular Rhythm, Regular Rate Gastrointestinal/Abdominal: positive: Normal Bowel Sounds, Soft. negative: Tender Lymphatic: negative: Adenopathy Musculoskeletal: positive: Normal Inspection Extremity: positive: Normal Capillary Refill, Normal Inspection, Normal Range of Motion Integumentary: positive: Normal Color, Dry, Warm Neurologic: positive: Fully Oriented, Alert, Normal Mood/Affect, Normal Response , Motor Strength 02/26 ED Treatment Course - Medications Given in the ED: ED Medications Discontinued Medications Generic Name Dose Route Start Last Admin Trade Name Freq PRN Reason Stop Dose Admin Ondansetron HCl 4 mg 11/18/17 08:31 11/18/17 08:38 Zofran Odt - SL 11/18/17 08:32 4 mg ONCE ONE Administration Medical Decision Making - Medical Decision Making 11/18/17 08:41 cc: nausea and vomiting since 5am no fever no diarrhea no abd pain no urinary complaints LMP 2 weeks ago will r/o urine zofran now 11/18/17 08:54 pt tolerated apple juice no vomiting , feels better asking to go home 11/18/17 09:53 *DC/Admit/Observation/Transfer Diagnosis at time of Disposition: Viral gastroenteritis - Discharge Dispostion Disposition: HOME Condition at time of disposition: Good - Referrals Referrals: Rip Morin MD [Primary Care Provider] - - Patient Instructions Additional Instructions: small sips of clear fluids the next 24hrs jello , ice pops , broth slowly advance to dry crackers dry toast as tolerated return to ER for any worsening symptoms - Post Discharge Activity Forms/Work/School Notes: Back to Work
== END 2017-11-18 09:58 | disposition home or self-care (01) ==
LOC: JERFT 08:08
DX: A08.4 Viral intestinal infection, unspecified (principal); B97.89 Other viral agents as the cause of diseases classified elsewhere
CPT/HCPCS: 84703; 99281-25

== ENCOUNTER 2017-12-02 15:37 | Emergency (ER) | payer BC, OTHER ==
[2017-12-02 15:50] VITALS: BP 122/77; PULSE 99; TEMP 99.7; BMI 28.3
--- NOTE | 2017-12-02 15:53 | PDOC ---
Rapid Medical Evaluation Chief Complaint: Respiratory Time Seen by Provider: 12/02/17 15:51 Medical Evaluation: Allergies Allergy/AdvReac Type Severity Reaction Status Date / Time nitrofurantoin Allergy Verified 12/02/17 15:50 [From Macrobid] nitrofurantoin Allergy Verified 12/02/17 15:50 macrocrystalline [From Macrobid] SEAFOOD Allergy THROAT Uncoded 12/02/17 15:50 SWELLING, RASH Vital Signs Temp Pulse Resp BP Pulse Ox 99.7 F H 99 H 16 122/77 100 12/02/17 15:47 12/02/17 15:47 12/02/17 15:47 12/02/17 15:47 12/02/17 15:47 12/02/17 15:52 Pt c/o: fevr, myalgai, weakness x 4 days Pt on exam: vss, lcta Pt ordered for : none Pt to proceed to the ED Discharge Disposition - Diagnosis Fever - Referrals - Patient Instructions - Post Discharge Activity
[2017-12-02] MEDS ORDERED: ACETAMINOPHEN 325 MG TABLET (FP) ONE (16:37)
[2017-12-02] MEDS ORDERED: ACETAMINOPHEN 500 MG TABLET (FP) PO ONE (17:14)
--- NOTE | 2017-12-02 17:39 | PDOC ---
History of Present Illness - General Chief Complaint: Respiratory Stated Complaint: FEVER Time Seen by Provider: 12/02/17 15:51 History Source: Patient Exam Limitations: No Limitations - History of Present Illness Initial Comments: 12/02/17 17:34 Mom here with daughter with complaints of cough, fevers, sore throat pain, general body aches 3-4 days. States all of family has been ill and has brought daughter for same illness symptoms that started yesterday. Some family members have been diagnosed with influenza. Patient has taken ibuprofen for fever and pain relief. Timing/Duration: reports: constant Severity: reports: mild, moderate Associated Symptoms: reports: chest pain/soreness, cough, fever/chills, lightheadedness, nasal congestion, nasal drainage, sore throat Past History - Travel Traveled outside of the country in the last 30 days: No Close contact w/someone who was outside of country & ill: No - Past Medical History Allergies/Adverse Reactions: Allergies Allergy/AdvReac Type Severity Reaction Status Date / Time nitrofurantoin Allergy Verified 12/02/17 15:50 [From Macrobid] nitrofurantoin Allergy Verified 12/02/17 15:50 macrocrystalline [From Macrobid] SEAFOOD Allergy THROAT Uncoded 12/02/17 15:50 SWELLING, RASH Home Medications: Ambulatory Orders Ibuprofen [Motrin -] 400 mg PO QID PRN #28 tablet 12/02/17 COPD: No DVT: No Disorders: Yes (ecotopic PREGS ( RIGHT FALLOPIAN TUBE )) Psychiatric Problems: Yes (bipolar d/o , ocd) - Surgical History Abdominal Surgery: Yes (rt F.TUBE REMOVED) - Reproductive History (#): 4 Para: 0 Cervical CA: No Dysfunctional Uterine Bleeding: No Ectopic : Yes (x2) Endometrial CA: No Polycystic Ovaries: No Therapeutic (s) & number: No Tubal Ligation: No Spontaneous : 2 Oophorectomy: No - Immunization History Immunization Up to Date: Yes - Suicide/Smoking/Psychosocial Hx Smoking Status: No Smoking History: Never smoked Have you smoked in the past 12 months: No Number of Cigarettes Smoked Daily: 0 Hx Alcohol Use: No Drug/Substance Use Hx: No Substance Use Type: None Review of Systems - Review of Systems Able to Perform ROS?: Yes Is the patient limited Kazakh proficient: Yes Constitutional: Yes: Symptoms Reported, See HPI, Chills, Fever, Malaise, Weakness HEENTM: Yes: Symptoms Reported, See HPI, Nose Congestion, Throat Pain Respiratory: Yes: Symptoms reported, See HPI, Cough, Wheezing Musculoskeletal: Yes: Symptoms Reported, See HPI, Joint Pain, Joint Swelling, Muscle Pain All Other Systems: Reviewed and Negative *Physical Exam - Vital Signs Last Vital Signs Temp Pulse Resp BP Pulse Ox 99.7 F H 99 H 16 122/77 100 12/02/17 15:47 12/02/17 15:47 12/02/17 15:47 12/02/17 15:47 12/02/17 15:47 - Physical Exam General Appearance: Yes: Nourished, Appropriately Dressed, Apparent Distress, Mild Distress HEENT: positive: MEGAN, Normal ENT Inspection, TMs Normal (congested but landmarks visualized), Nasal Congestion (clear), Rhinorrhea Neck: positive: Supple. negative: Tender Respiratory/Chest: positive: Lungs Clear (course), Normal Breath Sounds. 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 However patient is outside window for Tamiflu administration therefore will continue conservative treatment *DC/Admit/Observation/Transfer Diagnosis at time of Disposition: Influenzal acute upper respiratory infection - Discharge Dispostion Disposition: HOME Condition at time of disposition: Stable Admit: No - Referrals Referrals: Rip Morin MD [Primary Care Provider] - - Patient Instructions Additional Instructions: Rest, drink lots of fluids: Teas, water, soups, Pedialyte Saltwater gargles Steamy showers/seem to face break up mucus Old-fashioned treatments help! Avoid contact with others until fevers and cough resolved as this is very contagious Lots of handwashing and good hygiene Continue [id number] medications for symptomatic relief Tylenol or Motrin for fever and pain Followup with private physician in one to 2 days as needed or if worsening Return to emergency department for worsened symptoms, fevers, dehydration Influenza takes between 5 and 7 days for resolution To not participate in any activity, work, or school until fevers and cough are gone for at least one day - Post Discharge Activity Forms/Work/School Notes: Back to Work
== END 2017-12-02 17:45 | disposition home or self-care (01) ==
LOC: JERFT 15:37
DX: J11.1 Influenza due to unidentified influenza virus with other respiratory manifestations (principal)
CPT/HCPCS: 99281-25

== ENCOUNTER 2018-02-02 09:56 | Emergency (ER) | payer BC, OTHER ==
[2018-02-02 10:05] VITALS: BMI 28.1
[2018-02-02 12:22] LABS: URINE APPEARANCE SLCLOUDY; URINE BILIRUBIN NEGATIVE (<2.0 mg/dL); URINE BLOOD NEGATIVE (NEGATIVE); URINE COLOR LTYELLOW; URINE GLUCOSE (UA) NEGATIVE (NEGATIVE); URINE KETONE NEGATIVE (NEGATIVE); URINE NITRITE NEGATIVE (NEGATIVE); URINE PROTEIN NEGATIVE (NEGATIVE); URINE UROBILINOGEN NEGATIVE mg/dL (0.2-1.0)
[2018-02-02 12:23] LABS: EPI CELLS FEW /HPF (FEW); URINE LEUK ESTERASE 3+ (NEGATIVE); URINE MUCUS RARE
[2018-02-02 12:30] LABS: EOS % 0.9 % (0-4.5); HEMATOCRIT 33.6 % (32.4-45.2); HEMOGLOBIN 10.7 GM/dL (10.7-15.3); LYMPH % 40.3 % (8-40); MCH 24.4 pg (25.7-33.7); MCHC 31.7 g/dl (32.0-36.0); MEAN CELL VOLUME 77.1 fl (80-96); MEAN PLT VOLUME 7.6 fl (7.5-11.1); MONO % 7.3 % (3.8-10.2); NEUT % 50.5 % (42.8-82.8); PLATELET COUNT 370 K/MM3 (134-434); RBC 4.36 M/mm3 (3.60-5.2); RDW 21.5 % (11.6-15.6); WHITE BLOOD COUNT 5.2 K/mm3 (4.0-10.0)
[2018-02-02 12:54] LABS: ALBUMIN 4.1 g/dl (3.4-5.0); ANION GAP 8 (8-16); BILIRUBIN,TOTAL 0.2 mg/dL (0.2-1.0); BLOOD UREA NITROGEN 5 mg/dL (7-18); CALCIUM 9.1 mg/dL (8.5-10.1); CHLORIDE 105 mmol/L (98-107); CO2 30 mmol/L (21-32); CREATININE 0.8 mg/dL (0.55-1.02); GLUCOSE,RANDOM 86 mg/dL (74-106); POTASSIUM 4.2 mmol/L (3.5-5.1); SGOT/AST 16 U/L (15-37); SGPT/ALT 12 U/L (12-78); SODIUM 143 mmol/L (136-145); TOT PROT 7.9 g/dl (6.4-8.2)
[2018-02-02 12:55] LABS: ALK PHOS 57 U/L (45-117)
--- NOTE | 2018-02-02 13:06 | PDOC ---
History of Present Illness - General History Source: Patient Exam Limitations: No Limitations - History of Present Illness Initial Comments: 02/02/18 13:46 The patient is a 27 year old female, , blood type O negative, with a significant past medical history of ectopic x2 s/p right fallopian tube removal and one miscarriage, who presents to the emergency department with intermittent middle to left suprapubic pain for about 2 weeks. She states she had some very mild vaginal bleeding last week, but denies ever being able to soak a pad or her underwear. She states the bleeding has stopped this week, but the intermittent abdominal pain persists. She states the pain goes from 8/10 to 5/10, but denies any pain now. She denies any other complaints. She states she had a positive test at [facility] 2 weeks ago. LMP 2-3 months ago. She denies chest pain, shortness of breath, headache and dizziness. She denies fever, chills, nausea, vomit, diarrhea and constipation. She denies dysuria, frequency, urgency and hematuria. <Danya Pompa - Last Filed: 02/02/18 16:14> - General History Source: Patient Exam Limitations: No Limitations <Stephani Álvarez - Last Filed: 02/02/18 17:19> - General Chief Complaint: Vaginal Bleeding Stated Complaint: BLEEDING () Time Seen by Provider: 02/02/18 11:50 Past History <Danya Pompa - Last Filed: 02/02/18 16:14> - Past Medical History COPD: No DVT: No Disorders: Yes (ecotopic PREGS ( RIGHT FALLOPIAN TUBE )) Psychiatric Problems: Yes (bipolar d/o , ocd) - Surgical History Abdominal Surgery: Yes (rt F.TUBE REMOVED) - Reproductive History (#): 4 Para: 0 Cervical CA: No Dysfunctional Uterine Bleeding: No Ectopic : Yes (x2) Endometrial CA: No Polycystic Ovaries: No Therapeutic (s) & number: No Tubal Ligation: No Spontaneous : 2 Oophorectomy: No - Immunization History Immunization Up to Date: Yes - Suicide/Smoking/Psychosocial Hx Smoking Status: No Smoking History: Never smoked Have you smoked in the past 12 months: No Number of Cigarettes Smoked Daily: 0 Information on smoking cessation initiated: No Hx Alcohol Use: No Drug/Substance Use Hx: No Substance Use Type: None <Stephani Álvarez - Last Filed: 02/02/18 17:19> - Past Medical History Allergies/Adverse Reactions: Allergies Allergy/AdvReac Type Severity Reaction Status Date / Time nitrofurantoin Allergy Verified 02/02/18 10:05 [From Macrobid] nitrofurantoin Allergy Verified 02/02/18 10:05 macrocrystalline [From Macrobid] SEAFOOD Allergy THROAT Uncoded 02/02/18 10:05 SWELLING, RASH Home Medications: Ambulatory Orders Ibuprofen [Motrin -] 400 mg PO QID PRN #28 tablet 12/02/17 Review of Systems - Review of Systems Able to Perform ROS?: Yes Comments:: 02/02/18 13:47 CONSTITUTIONAL: Absent: fever, no chills, no fatigue EYES: Absent: visual changes ENT: Absent: ear pain, no sore throat CARDIOVASCULAR: Absent: chest pain, no palpitations RESPIRATORY: Absent: cough, no SOB GASTROINTESTINAL: (+) suprapubic abdominal pain, Absent: no nausea, no vomiting, no constipation , no diarrhea GENITOURINARY: Absent: dysuria, no frequency, no hematuria MUSCULOSKELETAL: Absent: back pain, no arthralgia, no myalgia SKIN: Absent: rash NEURO: Absent: headache <Danya Pompa - Last Filed: 02/02/18 16:14> *Physical Exam - Vital Signs Last Vital Signs Temp Pulse Resp BP Pulse Ox 99.1 F 83 16 121/83 100 02/02/18 10:01 02/02/18 10:01 02/02/18 10:01 02/02/18 10:01 02/02/18 10:01 - Physical Exam Comments: 02/02/18 13:47 GENERAL: The patient is in no acute distress. HEAD: Normal with no signs of trauma. EYES: PERRLA, EOMI, sclera anicteric, conjunctiva clear. ENT: Ears normal, nares patent, oropharynx clear without exudates. Moist mucous membranes. NECK: Normal range of motion, supple without lymphadenopathy, JVD, or masses. LUNGS: Breath sounds equal, clear to auscultation bilaterally. No wheezes, and no crackles. HEART:Regular rate and rhythm, normal S1 and S2 without murmur, rub or gallop. ABDOMEN: Soft, nontender, normoactive bowel sounds. No guarding, no rebound. No masses palpable. EXTREMITIES: Normal range of motion, no edema. No clubbing or cyanosis. No erythema, or tenderness. NEUROLOGICAL: Cranial nerves II through XII grossly intact. Normal speech. No focal neurological deficits. MUSCULOSKELETAL: Back non-tender to palpation, no CVA tenderness SKIN: Warm, Dry, normal turgor, no rashes or lesions noted. <Danya Pompa - Last Filed: 02/02/18 16:14> - Vital Signs Last Vital Signs Temp Pulse Resp BP Pulse Ox 99.1 F 83 16 121/83 100 02/02/18 10:01 02/02/18 10:01 02/02/18 10:01 02/02/18 10:01 02/02/18 10:01 <Stephani Álvarez - Last Filed: 02/02/18 17:19> ED Treatment Course - LABORATORY CBC & Chemistry Diagram: 02/02/18 12:15 02/02/18 12:15 - ADDITIONAL ORDERS Additional order review: Laboratory Results 02/02/18 02/02/18 12:15 11:42 Sodium 143 Potassium 4.2 Chloride 105 Carbon Dioxide 30 Anion Gap 8 BUN 5 L Creatinine 0.8 Creat Clearance w eGFR > 60 Random Glucose 86 Calcium 9.1 Total Bilirubin 0.2 AST 16 ALT 12 Alkaline Phosphatase 57 Total Protein 7.9 Albumin 4.1 Urine Color Ltyellow Urine Appearance Slcloudy Urine pH 8.0 Ur Specific Nunda 1.012 Urine Protein Negative Urine Glucose (UA) Negative Urine Ketones Negative Urine Blood Negative Urine Nitrite Negative Urine Bilirubin Negative Urine Urobilinogen Negative Ur Leukocyte Esterase 3+ H D Urine WBC (Auto) 16 Urine RBC (Auto) 2 Ur Epithelial Cells Few Urine Mucus Rare 02/02/18 12:15 RBC 4.36 MCV 77.1 L MCHC 31.7 L RDW 21.5 H D MPV 7.6 Neutrophils % 50.5 D Lymphocytes % 40.3 H D Monocytes % 7.3 Eosinophils % 0.9 Basophils % 1.0 - RADIOLOGY Radiograph Interpretation: 02/02/18 15:55 EXAM#: TYPE/EXAM: RESULT: [id number] US/TRANSVAGINAL US PREG Early . Left lower quadrant pain. Rule out ectopic . Pelvis ultrasound, transvesical and transvaginal Compared to prior pelvis ultrasound dated 11/26/2016 The uterus measures 6.8 x 3.7 cm in sagittal and AP dimension. Endometrial stripe is within normal limits in thickness measuring approximately 3 mm without evidence of an intrauterine gestation sac. The right ovary measures 3.4 x 2.4 cm with a simple cyst/dominant follicle measuring 1.5 x 1.2 cm and normal vascular flow, arterial and venous. The left ovary measures 3.4 x 2.1 cm with multiple small simple cysts/ follicles and normal vascular flow, arterial and venous. Just medial to the left ovary there is a round echogenic density with peripheral flow measuring 7 mm and an anechoic center measuring 5 mm. There is an oval-shaped masslike density seen deep in the midline of the pelvis measuring 5.3 x 1.6 cm with small amount of surrounding free fluid. IMPRESSION: Patient has a negative beta-hCG value that was submitted after performing the exam. Multiple fluid-filled small bowel loops in the pelvis are slightly limiting this examination. No intrauterine is identified. Simple cyst/dominant follicle in the right ovary measuring 1.5 x 1.2 cm. Small round echogenic density with hypoechoic center seen in the left adnexa, medial to the left ovary measuring 7 mm with peripheral vascular flow. Its appearance may be compatible with ectopic if the patient was . There is also a tubular shaped masslike density deep in the midline of the pelvis posteriorly measuring 5.3 x 1.6 cm with small amount of surrounding free fluid and without gross evidence of vascular flow, which is nonspecific. The possibility of tubo- ovarian abscess cannot be excluded if the patient has PID symptoms. Otherwise, further evaluation is needed to rule out a mass. Case discussed with Dr. Stephani Álvarez, emergency room caring attending physician. LICENSED CLUB MANAGER consult is suggested. Correlating to an short-term follow-up ultrasound within 24 to 48 hours would be helpful for further evaluation. Otherwise, correlation with MRI of the pelvis could be obtained for further evaluation Reported By: Pedrito Junior MD 02/02/18 1546 <Danya Pompa - Last Filed: 02/02/18 16:14> - LABORATORY CBC & Chemistry Diagram: 02/02/18 12:15 02/02/18 12:15 - ADDITIONAL ORDERS Additional order review: Laboratory Results 02/02/18 02/02/18 12:15 11:42 Sodium 143 Potassium 4.2 Chloride 105 Carbon Dioxide 30 Anion Gap 8 BUN 5 L Creatinine 0.8 Creat Clearance w eGFR > 60 Random Glucose 86 Calcium 9.1 Total Bilirubin 0.2 AST 16 ALT 12 Alkaline Phosphatase 57 Total Protein 7.9 Albumin 4.1 Urine Color Ltyellow Urine Appearance Slcloudy Urine pH 8.0 Ur Specific Nunda 1.012 Urine Protein Negative Urine Glucose (UA) Negative Urine Ketones Negative Urine Blood Negative Urine Nitrite Negative Urine Bilirubin Negative Urine Urobilinogen Negative Ur Leukocyte Esterase 3+ H D Urine WBC (Auto) 16 Urine RBC (Auto) 2 Ur Epithelial Cells Few Urine Mucus Rare 02/02/18 12:15 RBC 4.36 MCV 77.1 L MCHC 31.7 L RDW 21.5 H D MPV 7.6 Neutrophils % 50.5 D Lymphocytes % 40.3 H D Monocytes % 7.3 Eosinophils % 0.9 Basophils % 1.0 - RADIOLOGY Radiology Studies Ordered: Category Date Time Status TRANSVAGINAL US PREG [US] Stat Ultrasound 02/02/18 11:50 Ordered <Stephani Álvarez - Last Filed: 02/02/18 17:19> Medical Decision Making - Medical Decision Making 02/02/18 16:12 Dr. Shrestha was paged via phone answering service at this time requesting a call back for doctor to doctor consult. <Danya Pompa - Last Filed: 02/02/18 16:14> - Medical Decision Making Ms Vaca is a 27-year-old , last menstrual period approximately 2 months ago. Patient states that one week ago she noted very mild spotting. Patient states at that time she has saturaded no pads she noted mild pain in the left lower quadrant which resolved. Pain returned. At its worse 06/03. No radiation. No vaginal bleeding at this time. No nausea, no vomiting. Patient was concerned because she previously had 2 right-sided ectopic pregnancies, ultimately necessitating salpingotomy On examination: No abdominal tenderness to palpation No guarding, no rebound Diagnosis includes: Urinary tract infection, ectopic , normal with lower abdominal pain 02/02/18 13:07 Laboratory Tests 02/02/18 02/02/18 02/02/18 11:42 12:15 12:15 WBC 5.2 Hgb 10.7 Hct 33.6 Plt Count 370 D Sodium 143 Potassium 4.2 Chloride 105 Carbon Dioxide 30 BUN 5 L Creatinine 0.8 Random Glucose 86 Ur Leukocyte Esterase 3+ H D Urine WBC (Auto) 16 Urine RBC (Auto) 2 02/02/18 15:30 Ovaries nml Free fluid Cyst left ovary Large tubular density 5.3 x 1.5 posterior and deep in pelvis, without vascular flow ?PID and abscess (TOA) or mass 02/02/18 17:[address] Oquendo Pt possibly has fallopian tube cyst? or ovarian cyst Will: Treat for PID Discharge to home Send Swabs Follow up with Graining Machine Operator No need for Rhogam Clinical impression: abdominal pain, initial presentation UTI, initial presentation ? PID, initial presentation <Stephani Álvarez - Last Filed: 02/02/18 17:19> *DC/Admit/Observation/Transfer - Attestations Scribe Attestion: 02/02/18 13:48 Documentation prepared by Danya Pompa, acting as medical laboratory assistant for Stephani Álvarez MD <Danya Pompa - Last Filed: 02/02/18 16:14> - Discharge Dispostion Admit: No <Stephani Álvarez - Last Filed: 02/02/18 17:19> Diagnosis at time of Disposition: UTI (urinary tract infection) Qualifiers: Urinary tract infection type: site unspecified Hematuria presence: without hematuria Qualified Code(s): N39.0 - Urinary tract infection, site not specified Abdominal pain Qualifiers: Abdominal location: left lower quadrant Qualified Code(s): R10.32 - Left lower quadrant pain - Discharge Dispostion Disposition: HOME Condition at time of disposition: Stable - Referrals Referrals: Clint Interiano [Primary Care Provider] - Jolie Shrestha MD [Staff Physician] - Shira Luong MD [Staff Physician] - Mitul Robin MD [Staff Physician] - - Patient Instructions Printed Discharge Instructions: DI for Urinary Tract Infection (UTI), DI for Pelvic Inflammatory Disease Additional Instructions: Ms Vaca Thank you for coming into the emergency Department today. Please review the results of your ultrasound. Review of blood tests suggest that you are not . Urine urinalysis suggestive of urinary tract infection. There is a very small possibility that you have pelvic inflammatory disease We will treat you with an antibiotic You must follow up with gynecology within 1 week Return to the ER for fevers, chills, increased pain, any other concerns or complaints - Post Discharge Activity
[2018-02-02 18:44] VITALS: BP 122/80; PULSE 80; TEMP 98
--- NOTE | 2018-02-05 13:23 | PDOC ---
Patient Follow-up (Call Back) - Post ED Follow - Up Condition at time of discharge: Stable Disposition at time of original discharge: HOME Reason for Call Back: Abnwl. Microbiology (Received call from lab patient is positive for chlamydia. Patient was not treated for chlamydia. patient was discharged home with doxycycline which will cover chlamydia. I have called the patient and left a message on her cell phone to call back to discuss results and follow-up. No sensative information left on voice mail.)
== END 2018-02-02 18:45 | disposition home or self-care (01) ==
LOC: JER 09:56
DX: R10.32 Left lower quadrant pain (principal); N39.0 Urinary tract infection, site not specified; O26.891 Other specified pregnancy related conditions, first trimester; Z3A.00 Weeks of gestation of pregnancy not specified
CPT/HCPCS: 36415; 76817-TC; 80053; 81003; 81015; 84702; 85025; 86850; 86900; 86901; 87070; 87086; 87186; 87205; 87491; 87591; 99283-25

== ENCOUNTER 2018-07-07 09:36 | Emergency (ER) | payer OTHER ==
[2018-07-07 09:47] VITALS: BP 106/72; PULSE 84; TEMP 98.2; BMI 28.9
[2018-07-07 11:32] LABS: BASO % 1.5 % (0-2.0); EOS % 3.2 % (0-4.5); HEMATOCRIT 33.6 % (32.4-45.2); HEMOGLOBIN 11.2 GM/dL (10.7-15.3); LYMPH % 46.3 % (8-40); MCH 26.8 pg (25.7-33.7); MCHC 33.2 g/dl (32.0-36.0); MEAN CELL VOLUME 80.6 fl (80-96); MEAN PLT VOLUME 7.9 fl (7.5-11.1); MONO % 8.4 % (3.8-10.2); NEUT % 40.6 % (42.8-82.8); PLATELET COUNT 344 K/MM3 (134-434); RBC 4.17 M/mm3 (3.60-5.2); RDW 18.4 % (11.6-15.6)
[2018-07-07 11:33] LABS: URINE APPEARANCE SLCLOUDY; URINE BILIRUBIN NEGATIVE (<2.0 mg/dL); URINE COLOR YELLOW; URINE GLUCOSE (UA) NEGATIVE (NEGATIVE); URINE KETONE NEGATIVE (NEGATIVE); URINE LEUK ESTERASE NEGATIVE (NEGATIVE); URINE NITRITE NEGATIVE (NEGATIVE); URINE PROTEIN NEGATIVE (NEGATIVE); URINE UROBILINOGEN 4.0 E.U/dl mg/dL (0.2-1.0)
--- NOTE | 2018-07-07 11:37 | PDOC ---
History of Present Illness - General Chief Complaint: Pain Stated Complaint: ABD PAIN (12 WKS ) Time Seen by Provider: 07/07/18 10:16 History Source: Patient Exam Limitations: No Limitations - History of Present Illness Initial Comments: 07/07/18 11:12 The patient is a 28F with a PMH of bipolar depression and OCD who presents to the ER with complaints of abdominal pain and vaginal bleeding. The patient is a aborta 2, 2 ectopics, LMP "end of February". She states that yesterday she had a sudden onset of sharp, LLQ and suprapubic pain nonradiating, intermittent, without any exacerbating or alleviating factors. She admits to vaginal bleeding but is unsure of how many tampons she went through because she is "OCD and changes it if she sees a drop of blood". She denies blood clots. Past History - Past Medical History Allergies/Adverse Reactions: Allergies Allergy/AdvReac Type Severity Reaction Status Date / Time nitrofurantoin Allergy Verified 07/07/18 09:43 [From Macrobid] nitrofurantoin Allergy Verified 07/07/18 09:43 macrocrystalline [From Macrobid] SEAFOOD Allergy THROAT Uncoded 07/07/18 09:43 SWELLING, RASH Home Medications: Ambulatory Orders Alprazolam [Xanax] 2 mg PO BID 06/07/18 Quetiapine Fumarate [Seroquel] 100 tab PO ASDIR 06/07/18 COPD: No DVT: No Disorders: Yes (ecotopic PREGS ( RIGHT FALLOPIAN TUBE )) Psychiatric Problems: Yes (bipolar d/o , ocd) - Surgical History Abdominal Surgery: Yes (rt F.TUBE REMOVED) - Reproductive History (#): 4 Para: 0 Cervical CA: No Dysfunctional Uterine Bleeding: No Ectopic : Yes (x2) Endometrial CA: No Polycystic Ovaries: No Therapeutic (s) & number: No Tubal Ligation: No Spontaneous : 2 Oophorectomy: No - Immunization History Immunization Up to Date: Yes - Suicide/Smoking/Psychosocial Hx Smoking Status: No Smoking History: Never smoked Have you smoked in the past 12 months: No Number of Cigarettes Smoked Daily: 0 Hx Alcohol Use: No Drug/Substance Use Hx: No Substance Use Type: None Review of Systems - Review of Systems Able to Perform ROS?: Yes Comments:: 07/07/18 12:04 GENERAL/CONSTITUTIONAL: No fever or chills. No weakness. HEAD, EYES, EARS, NOSE AND THROAT: No change in vision. No ear pain or discharge. No sore throat. CARDIOVASCULAR: No chest pain, palpitations, or lightheadedness. RESPIRATORY: No cough, wheezing, shortness of breath, or hemoptysis. GASTROINTESTINAL: Positive for abdominal pain. No nausea, vomiting, diarrhea, or constipation. GENITOURINARY: Positive for vaginal bleeding. No dysuria, frequency, hematuria, or change in urination. MUSCULOSKELETAL: No joint or muscle swelling or pain. No neck or back pain. SKIN: No rash or lesions. NEUROLOGIC: No headache, numbness, tingling, focal weakness, loss of consciousness, or change in strength/sensation. ENDOCRINE: No increased thirst. No abnormal weight change. HEMATOLOGIC/LYMPHATIC: No anemia, easy bleeding, or history of blood clots. ALLERGIC/IMMUNOLOGIC: No hives or skin allergy. Is the patient limited Italian proficient: No *Physical Exam - Vital Signs Last Vital Signs Temp Pulse Resp BP Pulse Ox 98.2 F 84 18 106/72 100 07/07/18 09:44 07/07/18 09:44 07/07/18 09:44 07/07/18 09:44 07/07/18 09:44 - Physical Exam Comments: 07/07/18 12:05 GENERAL: Well developed, well nourished. Awake and alert. No acute distress. HEENT: Normocephalic, atraumatic. Hearing grossly normal. Moist mucous membranes. PERRLA, EOMI. No conjunctival pallor. Sclera are non-icteric. NECK: Supple. Full ROM. No JVD. CARDIOVASCULAR: Regular rate and rhythm. No murmurs, rubs, or gallops. PULMONARY: No evidence of respiratory distress. Lungs clear to auscultation bilaterally. ABDOMINAL: Soft. Non-tender. Non-distended. No rebound or guarding. PELVIC: Scant blood noted in vaginal vault. Cervical os closed. No CMT. L adnexal and midline tenderness. GENITOURINARY: No CVA tenderness bilaterally. MUSCULOSKELETAL: Normal range of motion at all joints. No bony deformities or tenderness. EXTREMITIES: No cyanosis. No clubbing. No edema. No calf tenderness or swelling. SKIN: Warm and dry. Normal capillary refill. No rashes. No jaundice. NEUROLOGICAL: Alert, awake, appropriate. Cranial nerves 2-12 grossly intact. Normal speech. Gait is normal without ataxia. PSYCHIATRIC: Cooperative. Good eye contact. Appropriate mood and affect. ED Treatment Course - LABORATORY CBC & Chemistry Diagram: 07/07/18 11:16 07/07/18 11:16 - RADIOLOGY Radiology Studies Ordered: Category Date Time Status TRANSVAGINAL US PREG [US] Stat Ultrasound 07/07/18 10:17 Ordered Medical Decision Making - Medical Decision Making 07/07/18 12:06 The patient is a 28F with a PMH of ectopic pregnancies and miscarriages who presents 3-4 months . Pelvic exam shows L adnexal tenderness. Concern for ectopic vs miscarriage. Pending US. 07/07/18 12:53 Upreg negative. Bquant negative. Likely already passed a miscarriage. 07/07/18 14:40 US shows suspected L hemorrhagic ovarian cyst. Will d/c with OBGYN and PCP f/u. *DC/Admit/Observation/Transfer Diagnosis at time of Disposition: Ovarian cyst Qualifiers: Laterality: left Qualified Code(s): N83.202 - Unspecified ovarian cyst, left side - Discharge Dispostion Disposition: HOME Condition at time of disposition: Stable Decision to Admit order: No - Referrals Referrals: Rip Morin MD [Primary Care Provider] - Mitul Robin MD [Staff Physician] - - Patient Instructions Printed Discharge Instructions: Ovarian Cyst Additional Instructions: Our blood and urine tests today indicate that you are not . You had an ultrasound that showed a cyst on your left ovary. Please follow up with your primary care physician and SET UP AND LAY OUT INSPECTOR in 2-3 days. Please return to the ER if you have any signs or symptoms of chest pain, shortness of breath, uncontrollable fever, chills, nausea, vomiting, numbness, tingling, or weakness in any part of your body, changes in vision, or slurred speech. Please return to the ER if symptoms persist, worsen, or new symptoms arise. - Post Discharge Activity
[2018-07-07 11:38] LABS: EPI CELLS RARE /HPF (FEW); URINE MUCUS RARE
[2018-07-07 12:03] LABS: CALCIUM OXALATE CRYSTALS RARE /hpf (NONE SEEN); GRANULAR CASTS 14 /lpf; YEAST RARE
[2018-07-07 12:07] LABS: ANION GAP 7 MMOL/L (8-16); BILIRUBIN,TOTAL 0.2 mg/dL (0.2-1.0); BLOOD UREA NITROGEN 11 mg/dL (7-18); CHLORIDE 109 mmol/L (98-107); CO2 26 mmol/L (21-32); CREATININE 0.9 mg/dL (0.55-1.02); GLUCOSE,RANDOM 87 mg/dL (74-106); POTASSIUM 4.4 mmol/L (3.5-5.1); SGOT/AST 17 U/L (15-37); SGPT/ALT 16 U/L (13-61); SODIUM 142 mmol/L (136-145)
[2018-07-07 12:10] LABS: ALK PHOS 46 U/L (45-117); TOT PROT 7.4 g/dl (6.4-8.2)
--- NOTE | 2018-07-07 14:13 | PDOC ---
Attending Attestation - Resident Resident Name: Seth Arias - ED Attending Attestation I have performed the following: I have examined & evaluated the patient, The case was reviewed & discussed with the resident, I agree w/resident's findings & plan, Exceptions are as noted - HPI HPI: 07/07/18 14:10 28 yo F with h/o prior ectopic and miscarriage, schizophrenia and bipolar here for evaluation vaginal bleeding. pt states she was told she was 3 mo ago at [facility], did not have an ultrasound at that time. states she has followup scheduled with her OB this week. no abd cramping , mild llq pain, no vaginal dc. no n/v no other complaint.s no urinary sxs. - Physicial Exam PE: 07/07/18 14:12 awake alrt lungs clear bilaterally heart rrr nomrg. abd soft mild suprapubic llq ttp. no rebound no guarding. skin warm and dry. - Medical Decision Making 07/07/18 14:12 differential ab, incomplete ab, ectopic. plan tvus labs . pt with empty uterus, left hemorrhagic cyst . no freef luid, hcg was negative. ua negative. will dc home with follow up this week as scheduled.
== END 2018-07-07 14:49 | disposition home or self-care (01) ==
LOC: JERFT 09:36 → JER 09:36
DX: N83.202 Unspecified ovarian cyst, left side (principal)
CPT/HCPCS: 36415; 76817-TC; 80053; 81003; 81015; 84702; 84703; 85025; 86850; 86900; 86901; 99281-25

== ENCOUNTER → 2019-07-10 | Outpatient (CLI) | payer OTHER | LOC: YHH 11:59 ==